=== PATIENT | male | born 1990 | race Caucasian/White ===

== ENCOUNTER 2017-06-04 07:56 | Day surgery (SDC) | payer BC ==
[2017-06-04] MEDS ORDERED: Rocuronium 50 MG/5 ML Vial IV ONE (07:57)
[2017-06-04] MEDS ORDERED: Neostigmine Methylsulfate 10 MG/10 ML MDV IV ONE (07:57)
[2017-06-04] MEDS ORDERED: Propofol 200 MG/20 ML SDV IV ONE (07:57)
[2017-06-04] MEDS ORDERED: Ketorolac 30 MG/ML SDV IVPUSH ONE (07:57)
[2017-06-04] MEDS ORDERED: Ondansetron 4 MG/2 ML SDV IV ONE (07:57)
[2017-06-04] MEDS ORDERED: Lidocaine 2% 20 ML MDV INJECT ONE (07:57)
[2017-06-04] MEDS ORDERED: fentaNYL 100 MCG/2 ML SDV IV ONE (07:57)
[2017-06-04] MEDS ORDERED: Succinylcholine 200 MG/10 ML MDV IV ONE (07:57)
[2017-06-04] MEDS ORDERED: Midazolam 1 MG/ML 2 ML SDV IV ONE (07:57)
[2017-06-04] MEDS ORDERED: Glycopyrrolate 0.2 MG/ML 2 ML SDV IV ONE (07:57)
[2017-06-04] MEDS ORDERED: Midazolam 1 MG/ML 2 ML SDV ONE (08:18)
[2017-06-04] MEDS ORDERED: Glycopyrrolate 0.2 MG/ML 2 ML SDV ONE ×2 (08:19→08:21)
[2017-06-04] MEDS ORDERED: ePHEDrine 50 MG/ML SDV ONE (08:19)
[2017-06-04] MEDS ORDERED: Neostigmine Methylsulfate 10 MG/10 ML MDV ONE (08:19)
[2017-06-04] MEDS ORDERED: Phenylephrine 1% 10 MG/ML SDV ONE (08:19)
[2017-06-04] MEDS ORDERED: fentaNYL 100 MCG/2 ML SDV ONE (08:19)
[2017-06-04] MEDS ORDERED: Ondansetron 4 MG/2 ML SDV ONE (08:19)
[2017-06-04] MEDS ORDERED: Ketorolac 30 MG/ML SDV ONE (08:19)
[2017-06-04] MEDS ORDERED: Succinylcholine 200 MG/10 ML MDV ONE (08:20)
[2017-06-04] MEDS ORDERED: Propofol 200 MG/20 ML SDV ONE (08:20)
[2017-06-04] MEDS ORDERED: Rocuronium 50 MG/5 ML Vial ONE (08:20)
[2017-06-04] MEDS ORDERED: Lidocaine 2% 20 ML MDV ONE (08:21)
[2017-06-04] MEDS: Lactated Ringers 1,000 ML IV SCH ×2 (08:38→10:00)
[2017-06-04] MEDS ORDERED: ceFAZolin 1 GM in Premix Bag 1 BAG IV ONE (09:00)
[2017-06-04] MEDS ORDERED: Morphine 4 MG/ML Syringe IVPUSH ONE (11:16)
[2017-06-04] MEDS ORDERED: Morphine 2 MG/ML Syringe IV PRN (11:25)
--- NOTE | 2017-06-04 11:55 | OR ---
DATE: 06/04/2017 PREOPERATIVE DIAGNOSIS: Chronic cholecystitis with gallbladder sludge. POSTOPERATIVE DIAGNOSIS: Chronic cholecystitis with gallbladder sludge. PROCEDURE: Laparoscopic cholecystectomy. ANESTHESIA: General. ESTIMATED BLOOD LOSS: None. SPECIMEN: Gallbladder. INDICATION FOR PROCEDURE: This 26-year-old male has continued right upper quadrant abdominal pain. He has an ejection fraction of the gallbladder that is on the low normal side of about 30%, and he has ultrasound that shows sludge within the gallbladder and possibly some small stones. PROCEDURE IN DETAIL: After adequate preparation, the abdomen was insufflated using a Veress needle and CO2. Four trocars were placed in the abdomen under direct vision. Examination of the abdomen was normal. There were no abnormalities in the liver. The gallbladder appeared to be normal without any thickness or inflammation of the wall. The cystic triangle structures were grabbed and dissected free to isolate the cystic duct and cystic artery. These were triply clipped and divided. The gallbladder was taken off the liver bed using blunt, sharp, and Bovie dissection; and then, the gallbladder was extracted through the epigastric port site. The visualization of the rest of the abdomen again was normal. Trocars were removed, abdomen desufflated, and the skin was closed with Monocryl. The patient was taken to the recovery room. [facility] /[id number]
[2017-06-04] MEDS ORDERED: Acetaminophen/oxyCODONE 325-5 MG Tab PO ONE (12:44)
[2017-06-04 13:41] VITALS: BP 113/65
== END 2017-06-04 13:45 | disposition home or self-care (01) ==
LOC: DL.SDS 07:56 → EDSTATUS 09:00 → DL.SDS 13:45
PROVIDERS: ATTEND Surgery
DX: K81.1 Chronic cholecystitis (principal); F41.9 Anxiety disorder, unspecified; F32.9 Major depressive disorder, single episode, unspecified; Z98.890 Other specified postprocedural states; Z79.899 Other long term (current) drug therapy
CPT/HCPCS: 47562; A9270; J0330; J0690; J1885; J2250; J2270; J2405; J2704; J2710; J3010; J7120; J3490

== ENCOUNTER 2020-10-18 07:00 | Day surgery (SDC) | payer BC ==
[~2020-10-18 07:00] MED LIST: Dextrose 5%-0.45% NaCl 1,000 ML IV SCH; Midazolam 1 MG/ML 2 ML SDV ONE; Sodium Chloride 0.9% 10 ML Syringe FLUSH PRN; fentaNYL 100 MCG/2 ML SDV ONE
[2020-10-18] MEDS ORDERED: Midazolam 1 MG/ML 2 ML SDV IV ONE ×3 (07:01→08:22)
[2020-10-18] MEDS ORDERED: fentaNYL 100 MCG/2 ML SDV IV ONE ×3 (07:01→08:21)
--- NOTE | 2020-10-18 09:53 | OR ---
DATE: 10/18/2020 PROCEDURES: Esophagogastroduodenoscopy, narrow-band imaging, and multiple pinch biopsies. INSTRUMENT USED: GIF-HQ190 Olympus video panendoscope. PREMEDICATIONS: Fentanyl 100 mcg intravenous, Versed 2 mg intravenous. The procedure was done under pulse oximetry, BP recording, and groundwater monitoring technician. INDICATION: The patient with longstanding heartburn, on PPI with continuing difficulties unexplained and not responsive to medical measures. Esophagogastroduodenoscopy is performed for detection of any active erosive lesions, Mcelroy esophagus and/or malignancy also under consideration, H pylori status to be determined, endoscopic hemostasis therapy if needed. PROCEDURE IN DETAIL: The scope was passed with ease. Adequate visualization of the esophagus was made from proximal to distal areas. No upper esophageal lesions identified. No distal esophageal stricture. No uphill or downhill esophageal varices. No Kalpana-Darling tear. No evidence of erosive esophagitis by [place] criteria. No esophageal polyp or tumor mass identified. Proximally encroaching pink columnar epithelium was noted at around at 37 cm distal to the oral verge, NBI views were obtained, photographs were taken, 4- quadrant biopsies were taken and sent for any histopathologic evidence of intestinal metaplasia. No proximal gastric varices noted. Gastric fundus examination by retroflexion showed no polypoid lesions. No gastric ulcer, malignant mass, or vascular ectasia identified. Duodenal bulb showed no ulcer. Visualized second part of the duodenum was unremarkable. Multiple pinch biopsies were taken from the gastric antrum and proximal body and sent for PyloriTek test for H pylori and histopathology. No bleeding was noted from any of the visualized areas at the completion of examination. Photographs were taken of the duodenal bulb, gastric antrum, fundus, and distal esophagus. IMPRESSION: Columnar-lined distal esophagus. The patient tolerated the procedure well. [facility] /[id number]
[2020-10-18 10:20] VITALS: BP 111/68; PULSE 70
== END 2020-10-18 10:21 | disposition home or self-care (01) ==
LOC: DL.ENDO 07:00
PROVIDERS: ATTEND Internal Medicine Gastroenterology
DX: K29.50 Unspecified chronic gastritis without bleeding (principal); A04.8 Other specified bacterial intestinal infections; K22.8 Other specified diseases of esophagus; K22.70 Barrett's esophagus without dysplasia; K21.00 Gastro-esophageal reflux disease with esophagitis, without bleeding; Z90.49 Acquired absence of other specified parts of digestive tract
CPT/HCPCS: 87077; J2250; J3010; J7042